=== PATIENT | female | born 1985 | race African-American/Black ===

== ENCOUNTER 2017-06-17 18:04 | Inpatient (IN) | payer OTHER ==
[2017-06-17 18:18] VITALS: BMI 29.5
--- NOTE | 2017-06-17 18:42 | HP ---
COWS - Scale Resting Pulse: 0= [place] 80 or Below Sweatin= Beads of Sweat on Face Restless Observation: 1= Difficult to Sit Still Pupil Size: 1= Pupils >than Normal Bone or Joint Aches: 2= Severe Diffuse Aches Runny Nose/ Eye Tearin= Constantly Teary/Runny GI Upset > 30mins: 2= Nausea/Diarrhea Tremor Observation: 2= Slight Tremor Visible Yawning Observation: 4= Several Times/Minute Anxiety or Irritability: 2=Irritable/Anxious Goose Flesh Skin: 3=Piloerection COWS Score: 24 CIWA Score - CIWA Score Nausea/Vomitin Muscle Tremors: 3 Anxiety: 2 Agitation: 2 Paroxysmal Sweats: 3 Orientation: 0-Oriented Tacttile Disturbances: 1-Very Mild Itch/Numbness Auditory Disturbances: 1-Very Mild Visual Disturbances: 1-Very Mild Sensitivity Headache: 2-Mild CIWA-Ar Total Score: 17 Admission ROS BHS - HPI Chief Complaint: I need detox from alcohol and heroin Allergies/Adverse Reactions: Allergies Allergy/AdvReac Type Severity Reaction Status Date / Time No Known Allergies Allergy Verified 06/17/17 18:39 History of Present Illness: 32 y/o AA woman with several years of alcohol and heroin use presents to [facility] for the first time for treatment. Her last treatment was at [facility] in April of this year. She denies periods of sobriety Exam Limitations: No Limitations - Ebola screening Have you traveled outside of the country in the last 21 days: No Have you had contact with anyone from an Ebola affected area: No Have you been sick,other than usual withdrawal symptoms: No - Review of Systems Constitutional: Chills, Loss of Appetite, Changes in sleep EENT: reports: Tearing, Nose Congestion Respiratory: reports: No Symptoms reported Cardiac: reports: No Symptoms Reported GI: reports: Nausea, Poor Appetite, Abdominal cramping : reports: No Symptoms Reported Musculoskeletal: reports: Back Pain, Joint Pain, Muscle Pain, Muscle Weakness Neuro: reports: Headache, Numbness Endocrine: reports: No Symptoms Reported Hematology: reports: No Symptoms Reported Psychiatric: reports: Mood/Affect Appropiate Other Systems: Reviewed and Negative Patient History - Patient Medical History Hx Anemia: No Hx Asthma: No Hx Chronic Obstructive Pulmonary Disease (COPD): No Hx Cancer: No Hx Cardiac Disorders: No Hx Hypertension: No Hx Hypercholesterolemia: No Hx Pacemaker: No HX Cerebrovascular Accident: No Hx Seizures: No Hx Dementia: No Hx Diabetes: No Hx Gastrointestinal Disorders: No Hx Liver Disease: No Hx Genitourinary Disorders: No Hx Sexually Transmitted Disorders: No Hx Renal Disease (ESRD): No Hx Thyroid Disease: No Hx Human Immunodeficiency Virus (HIV): No Hx Hepatitis C: No Hx Depression: No Hx Suicide Attempt: No Hx Bipolar Disorder: No Hx Schizophrenia: No - Patient Surgical History Past Surgical History: No - PPD History Previous Implant?: Yes Documented Results: Negative w/o proof Implanted On Prior [facility] Admission?: No PPD to be Administered?: Yes - Reproductive History Patient is a Female of Child Bearing Age (11 -55 yrs old): Yes Last Menstrual Period: 06/10/17 Patient : No - Smoking Cessation Smoking history: Current every day smoker Have you smoked in the past 12 months: Yes Aproximately how many cigarettes per day: 20 Hx Chewing Tobacco Use: No Initiated information on smoking cessation: Yes 'Breaking Loose' booklet given: 06/17/17 - Substance & Tx. History Hx Alcohol Use: Yes (vodka) Hx Substance Use: Yes Substance Use Type: Alcohol, Cocaine, Opiates, Tranquilizers Hx Substance Use Treatment: Yes - Substances Abused Alcohol Route: Oral Frequency: Daily Amount used: 2 pints Age of first use: 32 Date of Last Use: 06/17/17 Heroin Route: Inhalation Frequency: Daily Amount used: 10 bags Age of first use: 25 Date of Last Use: 06/17/17 Cocaine Route: Smoking Frequency: Daily Amount used: $40 Age of first use: 25 Date of Last Use: 06/17/17 Family Disease History - Family Disease History Other Family History: Denies Admission Physical Exam S - Vital Signs Vital Signs: Vital Signs - 24 hr 06/17/17 18:16 Temperature 97.1 F L Pulse Rate 62 Respiratory 18 Rate Blood Pressure 126/79 - Physical General Appearance: Yes: Disheveled, Alcohol on Breath HEENTM: Yes: Hearing grossly Normal, Normocephalic, Normal Voice Respiratory: Yes: Chest Non-Tender, Lungs Clear, No Respiratory Distress, No Accessory Muscle Use Neck: Yes: No masses,lesions,Nodules Breast: Yes: Breast Exam Deferred Cardiology: Yes: Regular Rhythm, Regular Rate, S1, S2 Abdominal: Yes: Normal Bowel Sounds, Non Tender Genitourinary: Yes: Within Normal Limits Back: Yes: Normal Inspection Musculoskeletal: Yes: full range of Motion, Gait Steady Extremities: Yes: Non-Tender Neurological: Yes: incident response coordinator II-XII NML intact, Fully Oriented, Alert, Normal Mood/ Affect, Normal Response Integumentary: Yes: Dry, Other (scratches on right leg) - Diagnostic (1) Opiate dependence Current Visit: Yes Status: Acute Qualifiers: Substance use status: uncomplicated Qualified Code(s): F11.20 - Opioid dependence, uncomplicated (2) Uncomplicated alcohol withdrawal Current Visit: Yes Status: Acute (3) Nicotine dependence Current Visit: Yes Status: Acute Qualifiers: Nicotine product type: cigarettes Substance use status: uncomplicated Qualified Code(s): F17.210 - Nicotine dependence, cigarettes, uncomplicated (4) Cocaine abuse Current Visit: Yes Status: Acute Cleared for Admission [facility] - Detox or Rehab [facility] Level of Care: Medically Managed Detox Regimen/Protocol: Methadone/Librium [facility] Breath Alcohol Content Breath Alcohol Content: 0 Urine Pregancy Test - Result Urine Test Results: Negative- NO Line Present Urine Drug Screen - Results Drug Screen Negative: No Urine Drug Screen Results: BEBETO-Cocaine, OPI-Opiates, BZO-Benzodiazepines
[2017-06-17] MEDS ORDERED: hydrOXYzine PAMOATE 50 MG CAPSULE (FP) PO PRN (18:54)
[2017-06-17] MEDS ORDERED: MAGNESIUM HYDROX 2400MG/30ML ORAL SUSPENSION 30 ML CUP PO PRN (18:54)
[2017-06-17] MEDS ORDERED: MAG HYDROX/AL HYDROX/SIMETH 30 ML UNIT-DOSE CUP PO PRN (18:54)
[2017-06-17] MEDS ORDERED: MAGNESIUM CITRATE 300 ML BOTTLE PO PRN (18:54)
[2017-06-17] MEDS ORDERED: NICOTINE POLACRILEX 2 MG GUM BUC PRN (18:54)
[2017-06-17] MEDS ORDERED: LOPERAMIDE HCL 2 MG CAPSULE PO PRN (18:54)
[2017-06-17] MEDS ORDERED: METHADONE HCL 10 MG TABLET (FOR DETOX USE ONLY) PO ONE ×2 (18:54→23:00)
[2017-06-17] MEDS ORDERED: IBUPROFEN 400 MG TABLET (FP) PO PRN (18:54)
[2017-06-17] MEDS ORDERED: P-EPHED 60MG/TRIPROLIDI 2.5MG TABLET PO PRN (18:54)
[2017-06-17] MEDS ORDERED: MENTHOL/PHENOL 1 EACH UD MM PRN (18:54)
[2017-06-17] MEDS ORDERED: guaiFENesin/D-METHORPHAN HB 10 ML UNIT-DOSE CUPS PO PRN (18:54)
[2017-06-17] MEDS ORDERED: chlordiazePOXIDE HCL 25 MG CAPSULE PO PRN (18:54)
[2017-06-17] MEDS ORDERED: ACETAMINOPHEN 325 MG TABLET (FP) PO PRN (19:02)
[2017-06-17] MEDS ORDERED: chlordiazePOXIDE HCL 25 MG CAPSULE PO ONE (19:15)
[2017-06-17] MEDS: NICOTINE 21 MG/24 HOURS TOPICAL PATCH TD SCH (20:56)
[2017-06-17] MEDS ORDERED: MELATONIN 5 MG TABLETS PO PRN (22:00)
[2017-06-17] MEDS: THIAMINE HCL 100 MG TABLET (FP) PO SCH (22:40)
[2017-06-17] MEDS: chlordiazePOXIDE HCL 25 MG CAPSULE PO SCH (22:40)
[2017-06-18] MEDS: chlordiazePOXIDE HCL 25 MG CAPSULE PO SCH ×4 (05:53→22:20)
[2017-06-18 09:59] LABS: CHLORIDE 107 mmol/L (98-107); POTASSIUM 3.5 mmol/L (3.5-5.1); SODIUM 141 mmol/L (136-145)
[2017-06-18] MEDS ORDERED: METHADONE HCL 10 MG TABLET (FOR DETOX USE ONLY) PO SCH (10:00)
[2017-06-18 10:02] LABS: HEMATOCRIT 40.6 % (32.4-45.2); HEMOGLOBIN 13.7 GM/dL (10.7-15.3); MCHC 33.8 g/dl (32.0-36.0); MEAN CELL VOLUME 88.7 fl (80-96); MEAN PLT VOLUME 8.5 fl (7.5-11.1); PLATELET COUNT 222 K/MM3 (134-434); RBC 4.58 M/mm3 (3.60-5.2); WHITE BLOOD COUNT 5.7 K/mm3 (4.0-10.0)
[2017-06-18 10:15] LABS: ALBUMIN 3.1 g/dl (3.4-5.0); ALK PHOS 53 U/L (45-117); ANION GAP 7 (8-16); BILIRUBIN,TOTAL 0.7 mg/dL (0.2-1.0); BLOOD UREA NITROGEN 9 mg/dL (7-18); CALCIUM 8.4 mg/dL (8.5-10.1); CO2 27 mmol/L (21-32); CREATININE 0.8 mg/dL (0.55-1.02); GLUCOSE,RANDOM 117 mg/dL (74-106); SGOT/AST 10 U/L (15-37); SGPT/ALT 12 U/L (12-78); TOT PROT 6.2 g/dl (6.4-8.2)
[2017-06-18] MEDS: PRENATAL VITAMINS W/ FOLIC ACID TABLET (FP) PO SCH (10:37)
[2017-06-18] MEDS: NICOTINE 21 MG/24 HOURS TOPICAL PATCH TD SCH (10:38)
--- NOTE | 2017-06-18 14:34 | EKG ---
Test Reason : Blood Pressure : / mmHG Vent. Rate : 071 BPM Atrial Rate : 071 BPM P-R Int : 182 ms QRS Dur : 096 ms QT Int : 430 ms P-R-T Axes : 064 058 034 degrees QTc Int : 467 ms NORMAL SINUS RHYTHM WITH SINUS ARRHYTHMIA POSSIBLE LEFT ATRIAL ENLARGEMENT BORDERLINE ECG NO PREVIOUS ECGS AVAILABLE Confirmed by MD Júnior, Joaquim ([id number]) on 06/18/2017 2:34:36 PM Referred By: Zach England Confirmed By:Joaquim Callejas MD
--- NOTE | 2017-06-18 16:36 | PN ---
S CIWA - CIWA Score Nausea/Vomitin Muscle Tremors: 4-Moderate,w/Arms Extend Anxiety: 4-Mod. Anxious/Guarded Agitation: 4-Moderately Restless Paroxysmal Sweats: 3 Orientation: 0-Oriented Tacttile Disturbances: 1-Very Mild Itch/Numbness Auditory Disturbances: 0-None Visual Disturbances: 0-None Headache: 1-Very Mild CIWA-Ar Total Score: 20 BHS COWS - Scale Resting Pulse: 1= [place] 81-100 Sweatin= Chills/Flushing Restless Observation: 3= Extraneous Movement Pupil Size: 1= Pupils >than Normal Bone or Joint Aches: 2= Severe Diffuse Aches Runny Nose/ Eye Tearin= Runny Nose/Eyes GI Upset > 30mins: 2= Nausea/Diarrhea Tremor Observation of Outstretched Hands: 2= Slight Tremor Visible Yawning Observation: 1= 1-2x During Session Anxiety or Irritability: 2=Irritable/Anxious Goose Flesh Skin: 0=Smooth Skin COWS Score: 17 S Progress Note (SOAP) Subjective: Sweating, chills, stomach cramps, interrupted sleep; c/o fungus on feet and requesting fungal cream Objective: 06/18/17 16:34 Last Vital Signs Temp Pulse Resp BP Pulse Ox 98.2 F 88 16 127/65 06/18/17 13:28 06/18/17 13:28 06/18/17 13:28 06/18/17 13:28 Laboratory Tests 06/18/17 06/18/17 06/18/17 07:15 07:15 07:15 WBC 5.7 RBC 4.58 Hgb 13.7 Hct 40.6 MCV 88.7 MCH 30.0 MCHC 33.8 RDW 14.0 Plt Count 222 MPV 8.5 Sodium 141 Potassium 3.5 Chloride 107 Carbon Dioxide 27 Anion Gap 7 L BUN 9 Creatinine 0.8 Creat Clearance w eGFR > 60 Random Glucose 117 H Calcium 8.4 L Total Bilirubin 0.7 AST 10 L ALT 12 Alkaline Phosphatase 53 Total Protein 6.2 L Albumin 3.1 L RPR Titer Nonreactive HIV 1&2 Antibody Screen HIV P24 Antigen 06/18/17 07:15 WBC RBC Hgb Hct MCV MCH MCHC RDW Plt Count MPV Sodium Potassium Chloride Carbon Dioxide Anion Gap BUN Creatinine Creat Clearance w eGFR Random Glucose Calcium Total Bilirubin AST ALT Alkaline Phosphatase Total Protein Albumin RPR Titer HIV 1&2 Antibody Screen Negative HIV P24 Antigen Negative Labs reviewed Assessment: 06/18/17 16:35 Withdrawal symptoms Plan: Continue detox Tinea pedis: clotrimazole cream 1% bid to affected area on feet
[2017-06-18 17:45] LABS: URINE APPEARANCE CLOUDY; URINE BILIRUBIN NEGATIVE (<2.0 mg/dL); URINE COLOR DKYELLOW; URINE GLUCOSE (UA) NEGATIVE (NEGATIVE); URINE KETONE NEGATIVE (NEGATIVE); URINE LEUK ESTERASE TRACE (NEGATIVE); URINE NITRITE NEGATIVE (NEGATIVE); URINE PROTEIN NEGATIVE (NEGATIVE); URINE UROBILINOGEN 4.0 E.U/dl mg/dL (0.2-1.0)
[2017-06-18 17:54] LABS: EPI CELLS MODERATE /HPF (FEW); URINE BACTERIA RARE /hpf (NONE SEEN); URINE HYALINE CAST 2 /lpf; URINE MUCUS MODERATE
[2017-06-18] MEDS: THIAMINE HCL 100 MG TABLET (FP) PO SCH (22:20)
[2017-06-18] MEDS: CLOTRIMAZOLE 1% CREAM 15 GM TUBE TP SCH (22:20)
[2017-06-19] MEDS: chlordiazePOXIDE HCL 25 MG CAPSULE PO SCH ×2 (05:55→10:37)
[2017-06-19] MEDS ORDERED: METHADONE HCL 5 MG TABLET (FOR DETOX USE ONLY) PO SCH (10:00)
--- NOTE | 2017-06-19 10:20 | PN ---
[facility] CIWA - CIWA Score Nausea/Vomitin-Mild Nausea/No Vomiting Muscle Tremors: 4-Moderate,w/Arms Extend Anxiety: 4-Mod. Anxious/Guarded Agitation: 4-Moderately Restless Paroxysmal Sweats: 1-Minimal Palms Moist Orientation: 0-Oriented Tacttile Disturbances: 1-Very Mild Itch/Numbness Auditory Disturbances: 0-None Visual Disturbances: 0-None Headache: 1-Very Mild CIWA-Ar Total Score: 16 BHS COWS - Scale Resting Pulse: 0= [place] 80 or Below Sweatin= Chills/Flushing Restless Observation: 3= Extraneous Movement Pupil Size: 0= Normal to Room Light Bone or Joint Aches: 2= Severe Diffuse Aches Runny Nose/ Eye Tearin= Runny Nose/Eyes GI Upset > 30mins: 2= Nausea/Diarrhea Tremor Observation of Outstretched Hands: 2= Slight Tremor Visible Yawning Observation: 2= >3x During Session Anxiety or Irritability: 2=Irritable/Anxious Goose Flesh Skin: 0=Smooth Skin COWS Score: 16 [facility] Progress Note (SOAP) Subjective: joint pain body aches sweat trouble sleeping at night anxiety restlessness Objective: 06/19/17 10:19 Vital Signs Temperature 97.7 F 06/19/17 06:41 Pulse Rate 74 06/19/17 06:41 Respiratory Rate 18 06/19/17 06:41 Blood Pressure 115/68 06/19/17 06:41 O2 Sat by Pulse Oximetry (%) Laboratory Last Values WBC 5.7 K/mm3 (4.0-10.0) 06/18/17 07:15 RBC 4.58 M/mm3 (3.60-5.2) 06/18/17 07:15 Hgb 13.7 GM/dL (10.7-15.3) 06/18/17 07:15 Hct 40.6 % (32.4-45.2) 06/18/17 07:15 MCV 88.7 fl (80-96) 06/18/17 07:15 MCH 30.0 pg (25.7-33.7) 06/18/17 07:15 MCHC 33.8 g/dl (32.0-36.0) 06/18/17 07:15 RDW 14.0 % (11.6-15.6) 06/18/17 07:15 Plt Count 222 K/MM3 (134-434) 06/18/17 07:15 MPV 8.5 fl (7.5-11.1) 06/18/17 07:15 Sodium 141 mmol/L (136-145) 06/18/17 07:15 Potassium 3.5 mmol/L (3.5-5.1) 06/18/17 07:15 Chloride 107 mmol/L (98-107) 06/18/17 07:15 Carbon Dioxide 27 mmol/L (21-32) 06/18/17 07:15 Anion Gap 7 (8-16) L 06/18/17 07:15 BUN 9 mg/dL (7-18) 06/18/17 07:15 Creatinine 0.8 mg/dL (0.55-1.02) 06/18/17 07:15 Creat Clearance w eGFR > 60 (>60) 06/18/17 07:15 Random Glucose 117 mg/dL (74-106) H 06/18/17 07:15 Calcium 8.4 mg/dL (8.5-10.1) L 06/18/17 07:15 Total Bilirubin 0.7 mg/dL (0.2-1.0) 06/18/17 07:15 AST 10 U/L (15-37) L 06/18/17 07:15 ALT 12 U/L (12-78) 06/18/17 07:15 Alkaline Phosphatase 53 U/L (45-117) 06/18/17 07:15 Total Protein 6.2 g/dl (6.4-8.2) L 06/18/17 07:15 Albumin 3.1 g/dl (3.4-5.0) L 06/18/17 07:15 Urine Color Dkyellow 06/18/17 14:45 Urine Appearance Cloudy 06/18/17 14:45 Urine pH 6.0 (5.0-8.0) 06/18/17 14:45 Ur Specific [place] 1.021 (1.001-1.035) 06/18/17 14:45 Urine Protein Negative (NEGATIVE) 06/18/17 14:45 Urine Glucose (UA) Negative (NEGATIVE) 06/18/17 14:45 Urine Ketones Negative (NEGATIVE) 06/18/17 14:45 Urine Blood Negative (NEGATIVE) 06/18/17 14:45 Urine Nitrite Negative (NEGATIVE) 06/18/17 14:45 Urine Bilirubin Negative (<2.0 mg/dL) 06/18/17 14:45 Urine Urobilinogen 4.0 e.u/dl mg/dL (0.2-1.0) H 06/18/17 14:45 Ur Leukocyte Esterase Trace (NEGATIVE) 06/18/17 14:45 Urine WBC (Auto) 6 /hpf (3-5) 06/18/17 14:45 Urine RBC (Auto) 3 /hpf (0-3) 06/18/17 14:45 Ur Epithelial Cells Moderate /HPF (FEW) 06/18/17 14:45 Urine Bacteria Rare /hpf (NONE SEEN) 06/18/17 14:45 Hyaline Casts 2 /lpf 06/18/17 14:45 Urine Mucus Moderate 06/18/17 14:45 RPR Titer Nonreactive (NONREACTIVE) 06/18/17 07:15 HIV 1&2 Antibody Screen Negative 06/18/17 07:15 HIV P24 Antigen Negative 06/18/17 07:15 lab noted Assessment: 06/19/17 10:19 withdrawal sx Plan: continue detox
[2017-06-19 10:28] VITALS: BP 113/76; PULSE 73; TEMP 98.1
[2017-06-19] MEDS: NICOTINE 21 MG/24 HOURS TOPICAL PATCH TD SCH (10:38)
[2017-06-19] MEDS: PRENATAL VITAMINS W/ FOLIC ACID TABLET (FP) PO SCH (10:38)
[2017-06-19] MEDS: CLOTRIMAZOLE 1% CREAM 15 GM TUBE TP SCH (10:38)
--- NOTE | 2017-06-19 12:15 | DS ---
[facility] Detox Discharge Summary Admission Date: 06/17/17 Discharge Date: 06/19/17 - History Present History: Alcohol Dependence, Opioid Dependence Additional Comments: 32 years old female admitted 06/17/17 for alcohol and opioid detox patient wants to leave the facility and terminate the detox regimen alert oriented x 3 no acute distress - Physical Exam Results Vital Signs: Vital Signs Temperature 98.1 F 06/19/17 10:23 Pulse Rate 73 06/19/17 10:23 Respiratory Rate 18 06/19/17 10:23 Blood Pressure 113/76 06/19/17 10:23 O2 Sat by Pulse Oximetry (%) Pertinent Admission Physical Exam Findings: withdrawal sx Vital Signs Temperature 98.1 F 06/19/17 10:23 Pulse Rate 73 06/19/17 10:23 Respiratory Rate 18 06/19/17 10:23 Blood Pressure 113/76 06/19/17 10:23 O2 Sat by Pulse Oximetry (%) Laboratory Last Values WBC 5.7 K/mm3 (4.0-10.0) 06/18/17 07:15 RBC 4.58 M/mm3 (3.60-5.2) 06/18/17 07:15 Hgb 13.7 GM/dL (10.7-15.3) 06/18/17 07:15 Hct 40.6 % (32.4-45.2) 06/18/17 07:15 MCV 88.7 fl (80-96) 06/18/17 07:15 MCH 30.0 pg (25.7-33.7) 06/18/17 07:15 MCHC 33.8 g/dl (32.0-36.0) 06/18/17 07:15 RDW 14.0 % (11.6-15.6) 06/18/17 07:15 Plt Count 222 K/MM3 (134-434) 06/18/17 07:15 MPV 8.5 fl (7.5-11.1) 06/18/17 07:15 Sodium 141 mmol/L (136-145) 06/18/17 07:15 Potassium 3.5 mmol/L (3.5-5.1) 06/18/17 07:15 Chloride 107 mmol/L (98-107) 06/18/17 07:15 Carbon Dioxide 27 mmol/L (21-32) 06/18/17 07:15 Anion Gap 7 (8-16) L 06/18/17 07:15 BUN 9 mg/dL (7-18) 06/18/17 07:15 Creatinine 0.8 mg/dL (0.55-1.02) 06/18/17 07:15 Creat Clearance w eGFR > 60 (>60) 06/18/17 07:15 Random Glucose 117 mg/dL (74-106) H 06/18/17 07:15 Calcium 8.4 mg/dL (8.5-10.1) L 06/18/17 07:15 Total Bilirubin 0.7 mg/dL (0.2-1.0) 06/18/17 07:15 AST 10 U/L (15-37) L 06/18/17 07:15 ALT 12 U/L (12-78) 06/18/17 07:15 Alkaline Phosphatase 53 U/L (45-117) 06/18/17 07:15 Total Protein 6.2 g/dl (6.4-8.2) L 06/18/17 07:15 Albumin 3.1 g/dl (3.4-5.0) L 06/18/17 07:15 Urine Color Dkyellow 06/18/17 14:45 Urine Appearance Cloudy 06/18/17 14:45 Urine pH 6.0 (5.0-8.0) 06/18/17 14:45 Ur Specific [place] 1.021 (1.001-1.035) 06/18/17 14:45 Urine Protein Negative (NEGATIVE) 06/18/17 14:45 Urine Glucose (UA) Negative (NEGATIVE) 06/18/17 14:45 Urine Ketones Negative (NEGATIVE) 06/18/17 14:45 Urine Blood Negative (NEGATIVE) 06/18/17 14:45 Urine Nitrite Negative (NEGATIVE) 06/18/17 14:45 Urine Bilirubin Negative (<2.0 mg/dL) 06/18/17 14:45 Urine Urobilinogen 4.0 e.u/dl mg/dL (0.2-1.0) H 06/18/17 14:45 Ur Leukocyte Esterase Trace (NEGATIVE) 06/18/17 14:45 Urine WBC (Auto) 6 /hpf (3-5) 06/18/17 14:45 Urine RBC (Auto) 3 /hpf (0-3) 06/18/17 14:45 Ur Epithelial Cells Moderate /HPF (FEW) 06/18/17 14:45 Urine Bacteria Rare /hpf (NONE SEEN) 06/18/17 14:45 Hyaline Casts 2 /lpf 06/18/17 14:45 Urine Mucus Moderate 06/18/17 14:45 RPR Titer Nonreactive (NONREACTIVE) 06/18/17 07:15 HIV 1&2 Antibody Screen Negative 06/18/17 07:15 HIV P24 Antigen Negative 06/18/17 07:15 lab noted - Treatment Hospital Course: Detox Protocol Followed, Responded well Patient has Accepted a Rehab Referral to: community self help groups - Medication Discharge Medications: Ambulatory Orders NK [No Known Home Medication] 06/17/17 - Diagnosis (1) Nicotine dependence Current Visit: Yes Status: Acute Qualifiers: Nicotine product type: cigarettes Substance use status: in withdrawal Qualified Code(s): F17.213 - Nicotine dependence, cigarettes, with withdrawal (2) Uncomplicated alcohol withdrawal Current Visit: Yes Status: Acute - AMA Did Patient Leave Against Medical Advice: Yes
[2017-06-19] MEDS ORDERED: chlordiazePOXIDE 5 MG CAPSULE PO SCH (23:00)
[2017-06-20] MEDS ORDERED: chlordiazePOXIDE HCL 10 MG CAPSULE PO SCH (23:00)
[2017-06-21] MEDS ORDERED: METHADONE HCL 10 MG TABLET (FOR DETOX USE ONLY) PO SCH (10:00)
[2017-06-22] MEDS ORDERED: METHADONE HCL 5 MG TABLET (FOR DETOX USE ONLY) PO SCH (06:00)
== END 2017-06-19 11:30 | disposition left against medical advice (07) | DRG 770 ==
LOC: YASAS 18:04 → Y6N 19:00
PROVIDERS: ADMIT Internal Medicine; ATTEND Internal Medicine
PROC: HZ2ZZZZ Detoxification Services for Substance Abuse Treatment (ICD-10-PCS; principal; 2017-06-17)
DX: F11.23 Opioid dependence with withdrawal (principal); F10.230 Alcohol dependence with withdrawal, uncomplicated; F14.20 Cocaine dependence, uncomplicated; F17.213 Nicotine dependence, cigarettes, with withdrawal; B35.3 Tinea pedis; Z59.0 Homelessness
CPT/HCPCS: 36415; 80053; 81003; 81015; 85027; 86593; 87389; 93005; 93010